=== PATIENT | male | born 1955 | race Caucasian/White ===

== ENCOUNTER 2018-09-19 02:00 | Emergency (ER) | payer OTHER ==
[~2018-09-19] VITALS: Ht 172.7 cm; Wt 89.4 kg
[2018-09-19 02:05] VITALS: Ht 172.7 cm; Wt 89.4 kg
[2018-09-19 02:57] LABS: BASOPHIL % 0.3 % (0-2); PLATELET COUNT 197 x10^3mcL (130-400)
[2018-09-19 02:59] LABS: CALCIUM 8.4 mg/dL (8.5-10.1); CARBON DIOXIDE 26.3 mmol/L (21-32); CREATININE SERUM 1.3 mg/dL (0.7-1.3); POTASSIUM SERUM 3.9 mmol/L (3.5-5.1); RED CELL DISTRIBUTION WIDTH 11.4 % (11.5-14.5)
[2018-09-19 03:04] LABS: ALBUMIN 3.3 g/dL (3.4-5.0); BILIRUBIN TOTAL 0.96 mg/dL (0.20-1.00); TOTAL PROTEIN, SERUM 7.4 g/dL (6.4-8.2)
[2018-09-19 05:55] VITALS: BP 124/76
== END 2018-09-19 05:55 | disposition home or self-care (01) ==
LOC: ED 02:00
PROVIDERS: Emergency Medicine
DX: G47.00 Insomnia, unspecified (principal); R51 Headache; J40 Bronchitis, not specified as acute or chronic; I10 Essential (primary) hypertension; E11.9 Type 2 diabetes mellitus without complications; E78.00 Pure hypercholesterolemia, unspecified
CPT/HCPCS: 36415; 82962; 83880; Q0092